=== PATIENT | male | born 1950 | race Caucasian/White ===

== ENCOUNTER → 2020-08-24 | Outpatient (CLI) | payer OTHER | LOC: SJCVCIMAG 13:22 | PROVIDERS: ATTEND Internal Medicine | DX: R93.1 Abnormal findings on diagnostic imaging of heart and coronary circulation (principal) ==

== ENCOUNTER → 2020-08-31 | Outpatient (CLI) | payer OTHER | LOC: SJCVC 16:13 | PROVIDERS: ATTEND Internal Medicine Cardiovascular Disease | DX: R94.31 Abnormal electrocardiogram [ECG] [EKG] (principal); R00.1 Bradycardia, unspecified; I44.0 Atrioventricular block, first degree; I45.10 Unspecified right bundle-branch block; I25.10 Atherosclerotic heart disease of native coronary artery without angina pectoris; I10 Essential (primary) hypertension; E78.00 Pure hypercholesterolemia, unspecified; E78.5 Hyperlipidemia, unspecified; F41.9 Anxiety disorder, unspecified; F32.9 Major depressive disorder, single episode, unspecified; Z79.899 Other long term (current) drug therapy; Z79.82 Long term (current) use of aspirin ==

== ENCOUNTER 2020-09-05 13:35 | Emergency (ER) | payer OTHER ==
[~2020-09-05] VITALS: Ht 172.7 cm; Wt 83.0 kg
[2020-09-05] MEDS ORDERED: PROPECIA1 MG PO (14:10)
[2020-09-05] MEDS ORDERED: TOPROL XL50 MG PO (14:10)
[2020-09-05] MEDS ORDERED: DULOXETINE HCL60 MG PO (14:11)
[2020-09-05] MEDS ORDERED: BENICAR HCT 401 EAC1 PO (14:11)
[2020-09-05] MEDS ORDERED: PRAVACHOL40 MG PO (14:12)
[2020-09-05] MEDS ORDERED: KLOR-CON M2020 MEQ PO (14:12)
[2020-09-05] MEDS ORDERED: ASPIRIN325 PO (14:12)
[2020-09-05] MEDS ORDERED: BACLOFEN 10MG T10 MG PO (14:13)
[2020-09-05] MEDS ORDERED: BENADRYL25 MG PO (14:13)
[2020-09-05] MEDS ORDERED: MELATONIN10 M3 PO (14:13)
[2020-09-05] MEDS ORDERED: AMBIEN 10 MG TA10 MG PO (14:14)
[2020-09-05] MEDS ORDERED: SILDENAFIL20 MG PO (14:14)
[2020-09-05] MEDS ORDERED: HYDROCODON-ACE1 EAC7 PO (14:15)
[2020-09-05] MEDS ORDERED: XANAX1 MG PO (14:15)
[2020-09-05] MEDS ORDERED: CALCIUM CARBON500 MG PO (14:15)
[2020-09-05] MEDS ORDERED: VITAMIN C500 M1 PO (14:16)
[2020-09-05] MEDS ORDERED: OSTEO BI-FLEX1 EAC1 PO (14:16)
[2020-09-05] MEDS ORDERED: FISH OIL 1,0001 EAC9 PO (14:16)
[2020-09-05] MEDS ORDERED: ZINC50 M1 PO (14:17)
[2020-09-05] MEDS ORDERED: CANDICIDAL CAP1 EACH PO (14:17)
[2020-09-05] MEDS ORDERED: SUPER B-50 COM1 EACH PO (14:17)
[2020-09-05] MEDS ORDERED: MAGNESIUM250 M1 PO (14:17)
[2020-09-05] MEDS ORDERED: D3-200050 MCG PO (14:18)
[2020-09-05] MEDS ORDERED: SLOW-MAG64 M1 PO (14:18)
[2020-09-05] MEDS ORDERED: MEN'S MULTIVIT1 EACH PO (14:19)
[2020-09-05] MEDS ORDERED: CO Q-10400 MG PO (14:19)
[2020-09-05] MEDS ORDERED: NORCO 10-325 T1 EACH PO (15:07)
[2020-09-05 15:30] VITALS: BP 130/82
== END 2020-09-05 15:36 | disposition home or self-care (01) ==
LOC: ER 13:35
DX: M25.562 Pain in left knee (principal); M19.90 Unspecified osteoarthritis, unspecified site; I10 Essential (primary) hypertension; E78.00 Pure hypercholesterolemia, unspecified; Z92.29 Personal history of other drug therapy; Z86.16 Personal history of COVID-19